=== PATIENT | female | born 1985 | race Two or more races ===

== ENCOUNTER → 2025-02-16 | Emergency (ER) | payer OTHER ==
[~2025-02-16] VITALS: Ht 160 cm; Wt 70.8 kg
[~2025-02-16] MED LIST: ADDERALL 10 MG10 MG; ALBUTEROL0.63 MG/3; ALLEGRA ALLERGY60 MG; DIPHENHYDRAMINE HCL 50 MG/ML VIAL 1ML IV ONE; DIPHENHYDRAMINE HCL 50 MG/ML VIAL 1ML ONE; EPINEPHRIN0.15 MG/01; EPIPEN0.3 MG/0.1 IJ; LIDOCAINE HCL 1% 10ML VIAL ONE; METHYLPREDNISOLONE SOD SUCC 40 MG VIAL IV ONE; METHYLPREDNISOLONE SOD SUCC 40 MG VIAL ONE; ZYRTEC10 M3
== END | disposition home or self-care (01) ==
LOC: ER 15:48
DX: T63.441A Toxic effect of venom of bees, accidental (unintentional), initial encounter (principal); Y92.89 Other specified places as the place of occurrence of the external cause; Z87.09 Personal history of other diseases of the respiratory system; Z88.6 Allergy status to analgesic agent; Z91.048 Other nonmedicinal substance allergy status